=== PATIENT | male | born 1935 | race Caucasian/White ===

== ENCOUNTER 2019-03-20 21:26 | Inpatient (IN) | payer MEDICARE, OTHER ==
[~2019-03-20] VITALS: Ht 185.4 cm; Wt 78.0 kg
--- NOTE | 2019-03-20 21:45 | NUR ---
TO BED 1 BIB PARAMEDICS C/O FEVER AND CHILLS X4 HOURS, PAINFUL URINATION. PT AAOX4 NO ACUTE DISTRESS NOTED, RESP EVEN AND UNLABORED. PLACE PT ON CARDIAC MONITORING, CONTINUOUS POX. PENDING ER MD THOMAS.
--- NOTE | 2019-03-20 21:48 | NUR ---
URINE SAMPLE COLLECTED AND SENT TO LAB.
[2019-03-20] MEDS ORDERED: IV NS 0.9% 500 ML BAG IV ONE (22:00)
[2019-03-20 22:15] LABS: BASOPHILS % (AUTO) 0.3 % (0.0-2.0); EOSINOPHILS % (AUTO) 0.2 % (0.0-6.0); HEMATOCRIT 42 % (39-51); HEMOGLOBIN 14.2 g/dL (13.5-17.5); LYMPHOCYTES # (AUTO) 0.5 /CMM (0.8-4.8); LYMPHOCYTES % (AUTO) 4.7 % (20.0-44.0); MEAN CORPUSCULAR HGB CONC 34 g/dl (31.0-36.0); MEAN CORPUSCULAR VOLUME 98 fL (80-96); MONOCYTES # (AUTO) 0.6 /CMM (0.1-1.30); MONOCYTES % (AUTO) 6.1 % (2.0-12.0); NEUTROPHILS # (AUTO) 8.9 /CMM (1.8-8.9); NEUTROPHILS % (AUTO) 88.7 % (43.0-81.0); PLATELET COUNT (AUTO) 180 /CMM (150-450); RED BLOOD CELL COUNT(AUTO) 4.32 MIL/uL (4.5-6.0)
[2019-03-20 22:25] LABS: APPEARANCE,URINE Cloudy (CLEAR); BILIRUBIN,URINE Negative (NEGATIVE); BLOOD, URINE Small Ery/uL (NEGATIVE); COLOR,URINE Yellow (YELLOW); KETONES,URINE Negative (NEGATIVE); LEUKOCYTE ESTERASE ,URINE Large (NEGATIVE); NITRITE, URINE Negative (NEGATIVE); PH,URINE 8.5 (5.0-8.0); PROTEIN,URINE 30 mg/dl (NEGATIVE); UGLUCOSE Negative (NEGATIVE); UROBILINOGEN,URINE 0.2 EU/dL (0.2)
[2019-03-20 22:31] LABS: CALCIUM, SERUM 9.5 mg/dL (8.5-10.1); CARBON DIOXIDE 28 mmol/L (21-32); CHLORIDE 100 mmol/L (98-107); CREATININE 1.2 mg/dL (0.6-1.3); GLUCOSE 102 mg/dL (74-106); POTASSIUM 3.9 mmol/L (3.5-5.1); SODIUM SERUM 136 mmol/L (136-145); UREA NITROGEN, BLOOD 26 mg/dL (7-18)
[2019-03-20 22:48] LABS: ALANINE AMINOTRANSFERASE 17 U/L (12-78); ALBUMIN 3.9 g/dL (3.4-5.0); ALKALINE PHOSPHATASE 80 U/L (46-116); ASPARTATE AMINOTRANSFERASE 23 U/L (15-37); BILIRUBIN,DIRECT 0.3 mg/dL (0.0-0.2); BILIRUBIN,TOTAL 1.1 mg/dL (0.2-1.0); TOTAL PROTEIN, SERUM 7.5 g/dL (6.4-8.2)
[2019-03-20] MEDS ORDERED: CEFTRIAXONE 1GM BAG (ER ONLY) 1 GM/50 ML PIGGYBACK IV ONE (23:00)
[2019-03-20 23:07] LABS: BACTERIA,URINE Many /HPF (None Seen); SQUAMOUS EPITHELIAL CELL,UR Few /HPF (None Seen); WBC,URINE TOO NUMEROUS TO COUN /HPF (0-3)
--- NOTE | 2019-03-20 23:11 | NUR ---
BED ASSIGNMENT 327-1 TELE
[2019-03-20] MEDS ORDERED: AZITHROMYCIN 500 MG in IV D5W 250 ML IV ONE (23:30)
[2019-03-20] MEDS ORDERED: CEFTRIAXONE 1GM BAG (ER ONLY) 50 ML IV ONE (23:41)
[2019-03-20] MEDS ORDERED: MORPHINE SULFATE INJ 2 MG/ML DISP.SYRIN ONE (23:42)
[2019-03-20] MEDS ORDERED: ONDANSETRON HCL/PF 4 MG/2 ML VIAL ONE (23:42)
--- NOTE | 2019-03-20 23:43 | NUR ---
PT WAS GIVEN MORPHINE 2MG IVP FOR PAIN PER ER MD ORDER.
[2019-03-20] MEDS ORDERED: diphenhydrAMINE HCL 50 MG/ML VIAL ONE (23:49)
--- NOTE | 2019-03-20 23:49 | NUR ---
NOTED REDNESS AND ITCHING ON ON THE RIGHT FOREARM, ER MD AT BEDSIDE TO MARTHA PT. PT MEDICATED WITH BENADRYL 25MG IVP.
[2019-03-21] MEDS ORDERED: diphenhydrAMINE HCL 50 MG/ML VIAL IV PRN
[2019-03-21] MEDS ORDERED: MAG HYDROX/AL HYDROX/SIMETH 30 ML UDC PO PRN
[2019-03-21] MEDS ORDERED: ONDANSETRON HCL/PF 4 MG/2 ML VIAL IV PRN
[2019-03-21] MEDS ORDERED: ACETAMINOPHEN 325 MG TABLET PO PRN
[2019-03-21] MEDS ORDERED: MORPHINE SULFATE INJ 2 MG/ML DISP.SYRIN IV PRN
[2019-03-21] MEDS ORDERED: MAGNESIUM HYDROXIDE 30 ML UDC PO PRN
[2019-03-21] MEDS ORDERED: ONDANSETRON HCL/PF 4 MG/2 ML VIAL IVP PRN
[2019-03-21] MEDS ORDERED: Z GUARD REMEDY 2 OZ OINT TP PRN
[2019-03-21] MEDS ORDERED: LIDOCAINE 2% JEL UROJET 10 ML MM ONE ×2 (00:22)
[2019-03-21 01:10] VITALS: BP 107/43
--- NOTE | 2019-03-21 01:10 | NUR ---
RN NOTES Rocephin 1g not given. Medication was given in ER
--- NOTE | 2019-03-21 01:10 | NUR ---
TECHNICAL SUPPORT PROFESSIONALUPPER CUTTER MACHINE NOTES Patient came to unit via gurney, accompanied by . Patient is alert, oriented x 4. Breathing even and unlabored. Not in any distress, on room air. Bailey catheter in place, draining well. No complaints at this time. IV access on RFA g#20, intact and patent. Oriented to call light- placed within reach, bed in low, locked position. Will continue to monitor accordingly
--- NOTE | 2019-03-21 01:15 | NUR ---
REPORT UPDATED TO SHEREEN ALANIS. PT TRANSPORTED TO TELEMETRY VIA ACLS PROTOCOL.
--- NOTE | 2019-03-21 01:25 | NUR ---
RN NOTES: RECEIVED CALL FROM ED, TOOL AND DIE MANAGER. PT WAS GIVEN MORPHINE AND ZOFRAN IN ER, ALSO ROCEPHIN. PER ED, PT HAD ALLERGIC REACTION TO MORPHINE, PT HAD RASHES AND SWELLING AT INJECTION SITE. PT WAS GIVEN BENADRYL. PT ALSO HAS ABBOTT CATHETER DUE TO URINARY RETENTION.
--- NOTE | 2019-03-21 02:00 | NUR ---
RN NOTES Received a call from pharmacy to clarify with MD to DC morphine and norco. Dr. Chambers made aware. As per MD. d/c morphine, but leave norco as this is prn only. Pt has allergy to Morphine.
[2019-03-21] MEDS: IV NS 0.9% 1,000 ML IV SCH ×3 (02:21→21:56)
[2019-03-21] MEDS ORDERED: AZITHROMYCIN 500 MG VIAL ONE (02:39)
--- NOTE | 2019-03-21 02:48 | NUR ---
RN NOTES ZITHROMAX 500MG OVERRIDE DONE BY VEST BUSHELER. TO GIVE ON THE FLOOR.
[2019-03-21 03:26] VITALS: BP 107/43
[2019-03-21 04:00] VITALS: BP 101/50
[2019-03-21 07:07] LABS: BASOPHILS % (AUTO) 0.2 % (0.0-2.0); HEMATOCRIT 37 % (39-51); HEMOGLOBIN 12.2 g/dL (13.5-17.5); LYMPHOCYTES % (AUTO) 8.3 % (20.0-44.0); MEAN CORPUSCULAR HGB CONC 33 g/dl (31.0-36.0); MEAN CORPUSCULAR VOLUME 98 fL (80-96); MONOCYTES # (AUTO) 1.2 /CMM (0.1-1.30); MONOCYTES % (AUTO) 9.6 % (2.0-12.0); NEUTROPHILS # (AUTO) 10.2 /CMM (1.8-8.9); NEUTROPHILS % (AUTO) 81.9 % (43.0-81.0); PLATELET COUNT (AUTO) 170 /CMM (150-450); RED BLOOD CELL COUNT(AUTO) 3.74 MIL/uL (4.5-6.0); WHITE BLOOD COUNT (AUTO) 12.4 K/uL (4.3-11.0)
--- NOTE | 2019-03-21 07:13 | NUR ---
FACULTY INSTRUCTOR CLOSING NOTES PATIENT SLEEPING IN BED, EASY TO AROUSE. BREATHING EVEN AND UNLABOTED. NOT IN ANY DISTRESS. PERIPHERAL IV INFUSING AT 100ML/HR. ABBOTT CATHETER IN PLACE, DRAINING WELL- EMPTIED ABOUT 1100,L THIS SHIFT. TELE MONITOR IN PLACE- SINUS JEN 59. NO ACUTE CHANGES OVERNIGHT. SAFETY MEASURES IN PLACE, CALL LIGHT WITHIN REACH, BED IN LOW, LOCKED POSITION. ENDORSED JJ TO AM RN
[2019-03-21 07:15] LABS: CHOLESTEROL 95 mg/dL (<200); HDL CHOLESTEROL 42 mg/dL (40-60); LDL 50 mg/dL (0-99); TRIGLYCERIDES 36 mg/dL (30-150)
[2019-03-21 07:32] LABS: UREA NITROGEN, BLOOD 22 mg/dL (7-18)
--- NOTE | 2019-03-21 07:40 | NUR ---
PATCH SETTER OPENING NOTES RECEIVED PATIENT SLEEPING IN BED, EASILY AROUSABLE. A/O X 3. ON RA, BREATHING EVEN AND UNLABORED. ON IV FLUIDS WITH NS @ 100ML/HR. PATENT AND INTACT. ABBOTT CATHETER IN PLACE, DRAINING WELL. ON TELE MONITOR WITH CURRENT READING OF SINUS JEN, HR OF 50 'S. SAFETY MEASURES IN PLACE, BED IN LOW LOCKED POSITION WITH SIDE RAILS UP X 2. CALL LIGHT WITHIN REACH. WILL CONTINUE TO MONITOR.
[2019-03-21 07:45] VITALS: BP 96/52
[2019-03-21] MEDS ORDERED: HYDROCODONE/APAP 5/325MG 1 EACH TABLET PO PRN ×2 (08:30)
[2019-03-21 09:33] LABS: CALCIUM, SERUM 8.5 mg/dL (8.5-10.1); CARBON DIOXIDE 26 mmol/L (21-32); CHLORIDE 103 mmol/L (98-107); CREATININE 1.1 mg/dL (0.6-1.3); GLUCOSE 98 mg/dL (74-106); PHOSPHORUS 3.7 mg/dL (2.5-4.9); POTASSIUM 4.3 mmol/L (3.5-5.1); SODIUM SERUM 138 mmol/L (136-145)
[2019-03-21] MEDS ORDERED: FLUO20TA28 PO (10:01)
[2019-03-21] MEDS ORDERED: IRBE75TA11 PO (10:01)
[2019-03-21] MEDS ORDERED: MULT-24 PO (10:01)
[2019-03-21] MEDS ORDERED: ESZO3TAB39 PO (10:01)
[2019-03-21] MEDS ORDERED: ASCO500T9 PO (10:01)
[2019-03-21] MEDS ORDERED: DESM0.2T4 PO (10:01)
[2019-03-21] MEDS ORDERED: OMEG-167 PO (10:01)
[2019-03-21] MEDS ORDERED: ASPI-1169 PO (10:01)
[2019-03-21] MEDS ORDERED: TAMS-12 PO (10:01)
[2019-03-21] MEDS ORDERED: PANT40TA4 PO (10:01)
[2019-03-21] MEDS ORDERED: ATOR10TA PO (10:01)
[2019-03-21] MEDS ORDERED: GABA-534 PO (10:01)
--- NOTE | 2019-03-21 16:20 | NUR ---
MS RN NOTES INFORMED DR. YEAGER TO DO MED RECON FOR PATIENT. WILL F/UP.
--- NOTE | 2019-03-21 18:15 | NUR ---
MS RN NOTES DR. YEAGER INFORMED REGARDING THE RESULTS OF BLOOD CULTURE AND URINE CULTURE. ALSO, REMINDED REGARDING THE MED RECON. WILL CONTINUE TO F/U.
--- NOTE | 2019-03-21 19:12 | NUR ---
MS RN CLOSING NOTES PATIENT RESTING IN BED IN MODERATE HIGH BACK REST. A/O X3. ON ROOM AIR, BREATHING EVEN AND UNLABORED. IVF ON RIGHT FA #20, INFUSING WELL @ 100 ML/HR. NO S/S OF INFILTRATION. SAFETY MEASURES IN PLACE. BED IN LOW LOCKED POSITION WITH SIDE RAILS X2. CALL LIGHT WITHIN REACH. WILL ENDORSED TO UTILITY SYSTEM OPERATOR NURSE FOR JJ.
[2019-03-21 20:00] VITALS: BP 113/48
[2019-03-21] MEDS ORDERED: GABAPENTIN 300 MG CAPSULE PO SCH ×2 (21:30→22:00)
[2019-03-21] MEDS: CEFTRIAXONE 1 G in IV D5W 50 ML IV SCH ×3 (21:54)
[2019-03-21] MEDS ORDERED: Eszopiclone 3 MG PO PRN (22:00)
[2019-03-21] MEDS: ZOLPIDEM TARTRATE 5 MG TABLET PO PRN (22:48)
[2019-03-21] MEDS: ENOXAPARIN SODIUM 40 MG/0.4 ML DISP.SYRIN SQ SCH (23:02)
[2019-03-21] MEDS: TAMSULOSIN 0.4 MG CAP.SR.24H PO SCH (23:02)
--- NOTE | 2019-03-21 23:03 | NUR ---
XYLOCAINE MISSED DOSE PAST DUE.
[2019-03-21] MEDS ORDERED: GABAPENTIN 300 MG CAPSULE PO ONE (23:30)
[2019-03-21] MEDS ORDERED: GABAPENTIN 300 MG CAPSULE ONE (23:53)
[2019-03-22] MEDS ORDERED: FAMO20TA80 PO (05:11)
[2019-03-22] MEDS ORDERED: CHOL100040 PO (05:11)
[2019-03-22] MEDS ORDERED: CYAN-51 SL (05:11)
[2019-03-22] MEDS ORDERED: SENN-168 PO (05:11)
[2019-03-22] MEDS ORDERED: MYRBETRIQ PO (05:11)
--- NOTE | 2019-03-22 06:15 | NUR ---
MS RN CLOSING NOTES PATIENT RESTING IN BED SEEN WITH EYES CLOSED. ON ROOM AIR, BREATHING EVEN AND UNLABORED. IVF ON RIGHT FA #20, INFUSING WELL @ 100 ML/HR. NO S/S OF INFILTRATION. SAFETY MEASURES IN PLACE. BED IN LOW LOCKED POSITION WITH SIDE RAILS X2. CALL LIGHT WITHIN REACH.
[2019-03-22] MEDS: IV NS 0.9% 1,000 ML IV SCH (06:34)
[2019-03-22] MEDS: PANTOPRAZOLE 40 MG TABLET.DR PO SCH (06:36)
--- NOTE | 2019-03-22 07:41 | NUR ---
MS RN OPENING NOTES RECEIVED PATIENT IN BED ASLEEP IN MODERATE HIGH BACK REST. EASILY AROUSABLE. IV FLUIDS ON RIGHT FA #20 WITH NS @100 ML/HR. PATENT AND INTACT. NOTED WITH FC, DRAINING WELL. SAFETY MEASURES IN PLACE, BED IN LOW LOCKED POSITION WITH SIDE RAILS UP X2. CALL LIGHT WITHIN EASY REACH. WILL CONTINUE TO MONITOR.
[2019-03-22 08:00] VITALS: BP 140/69
[2019-03-22] MEDS: GABAPENTIN 300 MG CAPSULE PO SCH ×3 (08:20→21:36)
[2019-03-22] MEDS: ASPIRIN 81 MG TAB.CHEW PO SCH (08:20)
[2019-03-22] MEDS: FLUOXETINE HCL 20 MG CAPSULE PO SCH (08:20)
[2019-03-22 16:00] VITALS: BP 89/47
[2019-03-22] MEDS: ATORVASTATIN 10 MG TABLET PO SCH (17:09)
--- NOTE | 2019-03-22 18:46 | NUR ---
MS RN CLOSING NOTES PATIENT IN BED ASLEEP IN MODERATE HIGH BACK REST. A/O X 4. ON RA, TOLERATING WELL. IV FLUIDS ON RIGHT FA #20 WITH NS @100 ML/HR. PATENT AND INTACT. NOTED WITH FC, DRAINING WELL. SAFETY MEASURES IN PLACE, BED IN LOW LOCKED POSITION WITH SIDE RAILS UP X2. CALL LIGHT WITHIN EASY REACH. WILL ENDORSED TO TOWEL SEWER NURSE FOR JJ.
[2019-03-22] MEDS: IV NS 0.9% 1,000 ML IV PRN (18:51)
--- NOTE | 2019-03-22 19:34 | NUR ---
MS/RN OPENING NOTES RECEIVED PATIENT IN BED, ALERT, ORIENTED X3, ABLE TO VERBALIZE NEEDS, FAMILY AT BED SIDE, RESPIRATIONS EVEN AND UNLABORED, ABLE TO DISCUSS CARE, VERBALIZE NO PAIN, NO GUARDING OR GRIMACE, HAD DINNER AND ATE 100% CONSUMPTION. ON ABBOTT CATHETER DRAINING DARK COLOR URINE, IV SITE ON RFA GAUGE 20 IV NS AT 100ML/HR, RECEIVED ENDORSEMENT FROM AM RN FOR JJ, WILL MONITOR. BED LOCKED, CALL LIGHTS WITHIN REACH.
[2019-03-22 20:00] VITALS: BP 137/59
--- NOTE | 2019-03-22 20:10 | NUR ---
MS/RN NOTES PATIENT REFUSED TO HAVE PHOTO TAKEN AT THIS TIME WILL CHECK AGAIN IN THE MORNING.
[2019-03-22 20:20] VITALS: BP 137/59
--- NOTE | 2019-03-22 21:10 | NUR ---
MS/RN NOTES PATIENT WAS INFORMED NOT TO HAVE HOME MEDICATION AT BEDSIDE, PATIENT WILL SEND MEDS HOME AND WILL BE BROUGHT HOME BY HIS .
[2019-03-22] MEDS: TAMSULOSIN 0.4 MG CAP.SR.24H PO SCH (21:36)
[2019-03-22] MEDS: ENOXAPARIN SODIUM 40 MG/0.4 ML DISP.SYRIN SQ SCH (21:38)
--- NOTE | 2019-03-22 21:48 | NUR ---
MS/RN NOTES PATIENT REQUESTED TO HAVE MEDICATION NEEDED FOR SLEEP AMBIEN TO BE GIVEN TOGETHER WITH IV ANTIBIOTIC. ALL CARE BE GIVEN BEFORE 12 PATIETN WOULD LIKE TO SLEEP AND NOT BE DISTURBED WHILE SLEEPING, SHOER WAS ALSO MADE AWARE.
[2019-03-22] MEDS: ZOLPIDEM TARTRATE 5 MG TABLET PO PRN (22:42)
[2019-03-22] MEDS: CEFTRIAXONE 1 G in IV D5W 50 ML IV SCH (23:01)
[2019-03-23] MEDS: IV NS 0.9% 1,000 ML IV PRN ×2 (05:29→17:48)
[2019-03-23 06:23] LABS: BASOPHILS % (AUTO) 0.6 % (0.0-2.0); EOSINOPHILS % (AUTO) 3.9 % (0.0-6.0); HEMATOCRIT 36 % (39-51); LYMPHOCYTES # (AUTO) 1.4 /CMM (0.8-4.8); LYMPHOCYTES % (AUTO) 26.6 % (20.0-44.0); MEAN CORPUSCULAR HGB CONC 34 g/dl (31.0-36.0); MEAN CORPUSCULAR VOLUME 97 fL (80-96); MONOCYTES # (AUTO) 0.8 /CMM (0.1-1.30); MONOCYTES % (AUTO) 16.1 % (2.0-12.0); NEUTROPHILS # (AUTO) 2.7 /CMM (1.8-8.9); NEUTROPHILS % (AUTO) 52.8 % (43.0-81.0); PLATELET COUNT (AUTO) 169 /CMM (150-450); RED BLOOD CELL COUNT(AUTO) 3.68 MIL/uL (4.5-6.0); WHITE BLOOD COUNT (AUTO) 5.2 K/uL (4.3-11.0)
--- NOTE | 2019-03-23 06:38 | NUR ---
MS/RN NOTES PATIENT ABLE TO SLEEP DURING THR NIGHT , RESPIRATIONS EVEN AND UNLABORED, SKIN WARM TO TOUCH, KEPT COMFRTABLE. BED LOCKED, CALL LIGHTS WITHIN REACH,IV SITE PATENT WLL NONITOR. , OFFERED AND PROVIDED FLUIDS.W ,
[2019-03-23 06:54] LABS: CALCIUM, SERUM 8.2 mg/dL (8.5-10.1); CREATININE 0.7 mg/dL (0.6-1.3); MAGNESIUM 1.8 mg/dL (1.8-2.4); PHOSPHORUS 2.9 mg/dL (2.5-4.9); POTASSIUM 3.9 mmol/L (3.5-5.1)
--- NOTE | 2019-03-23 07:20 | NUR ---
MS RN OPENING NOTE RECEIVED PATIENT IN BED RESTING COMFORTABLY. PATIENT IN NO ACUTE DISTRESS. NO SOB NOTED. PATIENT BREATHING IS EVEN AND UNLABORED. NO FACIAL GRIMACING NOTED. ABBOTT CATHETER HANGING TO GRAVITY. SAFETY PRECAUTIONS IN PLACE. PATIENT BED IS LOCKED AND IN LOWEST POSITION. CALL LIGHT WITHIN REACH. WILL CONTINUE TO MONITOR.
[2019-03-23 08:03] VITALS: BP 131/63
[2019-03-23] MEDS: GABAPENTIN 300 MG CAPSULE PO SCH ×3 (08:21→22:37)
[2019-03-23] MEDS: PANTOPRAZOLE 40 MG TABLET.DR PO SCH (08:21)
[2019-03-23] MEDS: FLUOXETINE HCL 20 MG CAPSULE PO SCH (08:21)
[2019-03-23] MEDS: ASPIRIN 81 MG TAB.CHEW PO SCH (08:22)
[2019-03-23 16:11] VITALS: BP 137/62
[2019-03-23] MEDS: ATORVASTATIN 10 MG TABLET PO SCH (17:47)
--- NOTE | 2019-03-23 19:25 | NUR ---
MS RN CLOSING NOTE PATIENT IN BED RESTING COMFORTABLY. PATIENT IN NO ACUTE DISTRESS. NO SOB NOTED. PATIENT BREATHING IS EVEN AND UNLABORED. PATIENT ABBOTT CATHETER WAS DC PER ORDER OF DR. YEAGER. PATIENT WAITING TO VOID ON HIS OWN. WILL ENDORSE TO BUTT SAWYER TO MONITOR URINE OUTPUT. PATIENT IN NO PAIN AT THIS TIME. PATIENT KEPT CLEAN, DRY, AND COMFORTABLE THROUGHOUT SHIFT. ALL NURSING NEEDS MET. PATIENT BED IS LOCKED AND IN LOWEST POSITION. CALL LIGHT WITHIN REACH. WILL ENDORSE CARE TO PM SHIFT FOR JJ.
--- NOTE | 2019-03-23 19:30 | NUR ---
RECEIVED PATIENT IN BED AWAKE. AO X 3, ABLE TO MAKE NEEDS KNOWN. NO ACUTE DISTRESS NOTED. DENIES ANY PAIN AT THIS TIME. IV SITE PATENT, INTACT; IVF INFUSING ORDERED. SAFETY REMINDERS GIVEN. ON LOW BED WITH BILATERAL UPPER SIDE RAILS UP. CALL DUMONT WITHIN EASY REACH. WILL CONTINUE TO MONITOR.
[2019-03-23 20:00] VITALS: BP 127/70
[2019-03-23] MEDS: TAMSULOSIN 0.4 MG CAP.SR.24H PO SCH (22:37)
[2019-03-23] MEDS: ZOLPIDEM TARTRATE 5 MG TABLET PO PRN (22:37)
[2019-03-23] MEDS: ENOXAPARIN SODIUM 40 MG/0.4 ML DISP.SYRIN SQ SCH (22:38)
[2019-03-23] MEDS: CEFTRIAXONE 1 G in IV D5W 50 ML IV SCH (23:32)
--- NOTE | 2019-03-24 06:00 | NUR ---
PATIENT ASLEEP, EASILY AROUSABLE. RESPIRATIONS EVEN. NO SIGNS OF PAIN NOTED. DUE MEDS GIVEN WITH NO ASE NOTED. NEEDS ATTENDED. SAFETY PRECAUTIONS AND COMFORT MEASURES IN PLACE. WILL GIVE REPORT TO DAY SHIFT FOR CONTINUITY OF CARE.
[2019-03-24 07:41] LABS: BASOPHILS % (AUTO) 0.7 % (0.0-2.0); EOSINOPHILS % (AUTO) 5.4 % (0.0-6.0); HEMATOCRIT 37 % (39-51); HEMOGLOBIN 12.3 g/dL (13.5-17.5); LYMPHOCYTES # (AUTO) 1.1 /CMM (0.8-4.8); LYMPHOCYTES % (AUTO) 23.8 % (20.0-44.0); MEAN CORPUSCULAR HGB CONC 34 g/dl (31.0-36.0); MEAN CORPUSCULAR VOLUME 97 fL (80-96); MONOCYTES # (AUTO) 0.6 /CMM (0.1-1.30); MONOCYTES % (AUTO) 14.4 % (2.0-12.0); NEUTROPHILS # (AUTO) 2.5 /CMM (1.8-8.9); NEUTROPHILS % (AUTO) 55.7 % (43.0-81.0); PLATELET COUNT (AUTO) 172 /CMM (150-450); RED BLOOD CELL COUNT(AUTO) 3.78 MIL/uL (4.5-6.0); WHITE BLOOD COUNT (AUTO) 4.5 K/uL (4.3-11.0)
[2019-03-24 07:48] LABS: CALCIUM, SERUM 8.6 mg/dL (8.5-10.1); CREATININE 0.7 mg/dL (0.6-1.3); MAGNESIUM 1.7 mg/dL (1.8-2.4); PHOSPHORUS 3.1 mg/dL (2.5-4.9); POTASSIUM 3.8 mmol/L (3.5-5.1)
[2019-03-24 08:00] VITALS: BP 150/66
--- NOTE | 2019-03-24 08:00 | NUR ---
MS RN RECEIVED ON BED, AWAKE,ALERT,ORIENTED X4,NOT IN ANY FORM OF DISTRESS, RESPIRATIONS EVEN AND UNLABORED,NO SOB NOTED, LUNGS ARE DIMINISHED, ABDOMEN SOFT,POSITIVE BOWEL SOUNDS, DENIES PAIN AT THIS TIME, WILL MONITOR PATIENT'S CONDITION.
--- NOTE | 2019-03-24 09:00 | NUR ---
MS REGAN BREAKFAST SERVED, MEDS GIVEN,TOLERATED WELL.
[2019-03-24] MEDS: FLUOXETINE HCL 20 MG CAPSULE PO SCH (09:44)
[2019-03-24] MEDS: PANTOPRAZOLE 40 MG TABLET.DR PO SCH (09:44)
[2019-03-24] MEDS: ASPIRIN 81 MG TAB.CHEW PO SCH (09:44)
[2019-03-24] MEDS: GABAPENTIN 300 MG CAPSULE PO SCH ×2 (09:46→12:36)
[2019-03-24] MEDS ORDERED: LEVO750T21 PO (10:17)
[2019-03-24] MEDS: Magnesium 1GM/D5W 100ML PREMIX 100 ML IV SCH ×2 (11:16→12:30)
--- NOTE | 2019-03-24 12:00 | NUR ---
MS RN WAS SEEN BY DR. RAMSES Calle/ ORDER TO DISCHARGE HOME TODAY.
--- NOTE | 2019-03-24 14:00 | NUR ---
MS RN PATIENT REFUSED TO TAKE PICTURE OF LEG SCAB.
--- NOTE | 2019-03-24 14:30 | NUR ---
MS CLASSIFICATION ANALYST INSTRUCTIONS GIVEN, PATIENT DISCHARGE W/ PRESCRIPTION FAXED TO [facility], ALL NEEDS ATTENDED. WAS ACCOMPANIED BY FRIEND VIA PRIVATE CAR.
== END 2019-03-24 15:05 | disposition home health service (06) | DRG 872 ==
LOC: ER 21:30 → TELE 23:37 → MED 03-21 08:31
PROVIDERS: ADMIT Internal Medicine; ATTEND Internal Medicine
DX: A41.9 Sepsis, unspecified organism (principal); N39.0 Urinary tract infection, site not specified; G62.9 Polyneuropathy, unspecified; F41.9 Anxiety disorder, unspecified; I10 Essential (primary) hypertension; E78.5 Hyperlipidemia, unspecified; B96.20 Unspecified Escherichia coli [E. coli] as the cause of diseases classified elsewhere; M48.00 Spinal stenosis, site unspecified; I25.10 Atherosclerotic heart disease of native coronary artery without angina pectoris; K21.9 Gastro-esophageal reflux disease without esophagitis; D64.9 Anemia, unspecified; N40.1 Benign prostatic hyperplasia with lower urinary tract symptoms; R39.15 Urgency of urination
CPT/HCPCS: 36415; 71045-TC; 76770-TC; 80048-TC; 80061-TC; 80076-TC; 81000-TC; 83605-TC; 83735-TC; 84100-TC; 84484-TC; 85025-TC; 85730-TC; 87040-TC; 87081-TC; 87086-TC; 87186-TC; G0378; J0456; J0696; J1200; J1650; J2270; J2405; J3475; J3490; J7030; J7040; J7060